=== PATIENT | female | born 1930 | race Native Hawaiian/Other Pacific Islander ===

== ENCOUNTER 2016-12-05 08:39 | Outpatient (CLI) | payer OTHER, MEDICARE ==
[2016-12-05 09:35] LABS: PLATELET COUNT 206 K/uL (152-353)
[2016-12-05 09:58] LABS: POTASSIUM 4.4 mmol/L (3.6-5.2); SODIUM 132 mmol/L (136-145)
== END 2016-12-05 19:43 | disposition home or self-care (01) ==
LOC: LABW 08:39
PROVIDERS: Internal Medicine
DX: I10 Essential (primary) hypertension (principal); M81.0 Age-related osteoporosis without current pathological fracture; N95.1 Menopausal and female climacteric states
CPT/HCPCS: 36415; 80053; 80061; 84443; 85027; 86140

== ENCOUNTER 2017-07-19 14:43 | Emergency (ER) | payer OTHER, MEDICARE ==
[~2017-07-19] VITALS: Ht 160 cm; Wt 47.6 kg
[2017-07-19 14:52] VITALS: BP 184/97; TEMP 97.6
[2017-07-19 15:04] LABS: PLATELET COUNT 227 K/uL (152-353)
[2017-07-19 15:25] LABS: POTASSIUM 4.5 mmol/L (3.6-5.2); SODIUM 130 mmol/L (136-145)
[2017-07-19] MEDS ORDERED: LOSA50TA PO (15:45)
== END 2017-07-19 19:25 | disposition short-term general hospital (02) ==
LOC: ED 14:43
PROC: 0T9B70Z Drainage of Bladder with Drainage Device, Via Natural or Artificial Opening (ICD-10-PCS; principal; 2017-07-19)
PROC: 0BH17EZ Insertion of Endotracheal Airway into Trachea, Via Natural or Artificial Opening (ICD-10-PCS; 2017-07-19)
DX: G93.89 Other specified disorders of brain (principal); M84.421A Pathological fracture, right humerus, initial encounter for fracture; J44.9 Chronic obstructive pulmonary disease, unspecified
CPT/HCPCS: 31500; 51702; 80053; 82550; 84484; 85027; 93005; 96360; 99291; 99292; J0330; J1100; J2250; J2405